=== PATIENT | male | born 1945 | race Caucasian/White ===

== ENCOUNTER 2019-02-03 23:12 | Emergency (ER) | payer MEDICARE, OTHER ==
[2019-02-04 01:50] LABS: ABSOLUTE LYMPHOCYTES (AUTO) 0.8 10^3/uL (0.5-4.7); ABSOLUTE MONOCYTES (AUTO) 0.3 10^3/uL (0.1-1.4); ABSOLUTE NEUT (AUTO) 9.7 10^3/uL (1.7-8.2); BASOPHILS % (AUTO) 0.4 % (0-2); EOSINOPHILS % (AUTO) 0.2 % (0-6); HEMATOCRIT 41.3 % (37.9-51.0); HEMOGLOBIN 14.5 g/dL (13.5-17.0); MEAN CORPUSCULAR HEMOGLOBIN 30.8 pg (27.0-33.4); MEAN CORPUSCULAR VOLUME 88 fl (80-97); MONOCYTES % (AUTO) 2.9 % (3-13); PLATELET COUNT 199 10^3/uL (150-450); RED BLOOD COUNT 4.69 10^6/uL (4.35-5.55); RED CELL DISTRIBUTION WIDTH 13.2 % (11.5-14.0); SEGMENTED NEUTROPHILS % (AUTO) 89.5 % (42-78); TOTAL CELLS COUNTED % (AUTO) 100 %; WHITE BLOOD COUNT 10.8 10^3/uL (4.0-10.5)
[2019-02-04 01:51] LABS: APPEARANCE,URINE CLEAR; BILIRUBIN,URINE NEGATIVE (NEGATIVE); COLOR,URINE YELLOW; GLUCOSE, URINE NEGATIVE (NEGATIVE); KETONES,URINE NEGATIVE (NEGATIVE); LEUKOCYTE ESTERASE,URINE NEGATIVE (NEGATIVE); NITRITE,URINE NEGATIVE (NEGATIVE); PROTEIN,URINE NEGATIVE (NEGATIVE); URINE SPECIFIC GRAVITY 1.016; UROBILINOGEN,URINE NEGATIVE mg/dL (<2.0)
[2019-02-04 02:16] LABS: ALANINE AMINOTRANSFERASE 21 U/L (21-72); ALBUMIN 4.5 g/dL (3.5-5.0); ALKALINE PHOSPHATASE 72 U/L (38-126); ANION GAP 10 (5-19); ASPARTATE AMINO TRANSFERASE 20 U/L (17-59); BILIRUBIN,DIRECT 0.1 mg/dL (0.0-0.4); BILIRUBIN,TOTAL 0.5 mg/dL (0.2-1.3); BLOOD UREA NITROGEN 21 mg/dL (7-20); CARBON DIOXIDE 28 mmol/L (22-30); CHLORIDE 105 mmol/L (98-107); GLUCOSE 153 mg/dL (75-110); LIPASE 52.3 U/L (23-300); POTASSIUM 3.9 mmol/L (3.6-5.0); SODIUM 142.8 mmol/L (137-145); TOTAL PROTEIN 7.3 g/dL (6.3-8.2)
--- NOTE | 2019-02-04 03:28 | RADIOLOGY REPORT (SQ) ---
EXAM DESCRIPTION: CT ABDOMEN PELVIS WITH IV CONTRAST COMPLETED DATE/TME: 02/04/2019 02:20 CLINICAL HISTORY: 73 years, Male, RLQ [pain COMPARISON: None. TECHNIQUE: 391 Images stored on PACS. All CT scanners at this facility use dose modulation, iterative reconstruction, and/or weight based dosing when appropriate to reduce radiation dose to as low as reasonably achievable (ALARA). [facility]: Dose Right [facility]: CareDose [facility]: Dose Right [facility]: Teradose 4D [facility]: LightSquared LIMITATIONS: None. FINDINGS: Limited evaluation of the lung bases is unremarkable. Osseous structures are grossly intact. The liver, spleen, adrenal glands are unremarkable. Fatty atrophy of the pancreas. 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 Gallbladder is present. Simple appearing left renal cyst. Punctate nonobstructing 1 to 2 mm renal calculi bilaterally. Kidneys are otherwise unremarkable. No evidence for bowel obstruction. Normal appendix. Large amount of stool in the colon. Descending and sigmoid colon diverticulosis. No CT evidence for acute diverticulitis. The prostate is enlarged. IMPRESSION: Descending/sigmoid colon diverticulosis without CT evidence for diverticulitis. Punctate nonobstructing renal calculi bilaterally. Partially thrombosed splenic artery aneurysm. Enlargement of the prostate. Correlate with PSA levels. TECHNICAL DOCUMENTATION: Quality ID # [id number]: Final reports with documentation of one or more dose reduction techniques (e.g., Automated exposure control, adjustment of the mA and/or kV according to patient size, use of iterative reconstruction technique) copyright 2011 [employer]- All Rights Reserved
[2019-02-04] MEDS ORDERED: KETOROLAC TROMETHAMINE INJ/PF 30 MG/1 ML SDV IV ONE (03:52)
--- NOTE | 2019-02-04 04:04 | ER Document Report ---
ED General - General Chief Complaint: Flank Pain Stated Complaint: FLANK PAIN Time Seen by Provider: 02/04/19 02:19 Primary Care Provider: CARLITO LEON MD [Primary Care Provider] - Follow up as needed Notes: Patient is a 73-year-old male presents to the emergency department for generalized right lower abdominal pain started around 1900 hrs. this evening. Patient is denying any nausea, vomiting, diarrhea, fever, dysuria. She states his last bowel movement was prior to arrival to the emergency room. Patient states pain is a constant cramping. Patient states intermittently the pain does go to his right flank region. Past medical history: Hypertension, hyperlipidemia, GERD Medications: Amlodipine, atorvastatin, omeprazole, aspirin Allergies: None TRAVEL OUTSIDE OF THE [place] IN LAST 30 DAYS: No - Related Data Allergies/Adverse Reactions: No Known Allergies Allergy (Unverified 02/03/19 23:19) Past Medical History - General Information source: Patient - Social History Smoking Status: Never Smoker Family History: Reviewed & Not Pertinent Patient has suicidal ideation: No Patient has homicidal ideation: No - Past Medical History Cardiac Medical History: Reports: Hx Hypercholesterolemia, Hx Hypertension Renal/ Medical History: Denies: Hx Peritoneal Dialysis Review of Systems - Review of Systems Constitutional: No symptoms reported EENT: No symptoms reported Cardiovascular: No symptoms reported Respiratory: No symptoms reported Gastrointestinal: See HPI Genitourinary: See HPI Male Genitourinary: No symptoms reported Musculoskeletal: See HPI Skin: No symptoms reported Hematologic/Lymphatic: No symptoms reported Neurological/Psychological: No symptoms reported Physical Exam - Vital signs Vitals: Temp Pulse Resp BP Pulse Ox 97.4 F 58 L 16 153/77 H 100 02/04/19 01:13 02/04/19 01:13 02/04/19 01:13 02/04/19 01:13 02/04/19 01:13 - Notes Notes: GENERAL: Alert, interacts well. No acute distress. HEAD: Normocephalic, atraumatic. EYES: Pupils equal, round, and reactive to light. Extraocular movements intact. ENT: Oral mucosa moist, tongue midline. NECK: Full range of motion. Supple. Trachea midline. LUNGS: Clear to auscultation bilaterally, no wheezes, rales, or rhonchi. No respiratory distress. HEART: Regular rate and rhythm. No murmur ABDOMEN: Soft, Non-distended. Bowel sounds present in all 4 quadrants. Generalized right lower abdominal pain, no Roberson sign noted. EXTREMITIES: Moves all 4 extremities spontaneously. No edema, normal radial and dorsalis pedis pulses bilaterally. No cyanosis. BACK: no cervical, thoracic, lumbar midline tenderness. No saddle anesthesia, normal distal neurovascular exam. No CVA tenderness noted bilaterally NEUROLOGICAL: Alert and oriented x3. Normal speech. cranial nerves II through XII grossly intact PSYCH: Normal affect, normal mood. SKIN: Warm, dry, normal turgor. No rashes or lesions noted. Course - Re-evaluation Re-evalutation: 02/04/19 04:[address] does show a partially thrombosed splenic artery, discussed this with surgeon Dr. Starks who states this is something that can be followed up in the office. Patient CT also revealed signs of constipation, no appendicitis, no SBO.. Discussed diagnosis of constipation with patient at bedside. Discussed close follow-up with primary care provider and return precautions. Patient voices understanding is stable for discharge. 02/04/19 04:02 - Vital Signs Vital signs: Temp Pulse Resp BP Pulse Ox 97.4 F 58 L 16 153/77 H 100 02/04/19 01:13 02/04/19 01:13 02/04/19 01:13 02/04/19 01:13 02/04/19 01:13 - Laboratory Result Diagrams: 02/04/19 01:34 02/04/19 01:34 Laboratory results interpreted by me: 02/04/19 02/04/19 02/04/19 01:34 01:34 01:34 WBC 10.8 H Seg Neutrophils % 89.5 H Lymphocytes % 7.0 L Monocytes % 2.9 L Absolute Neutrophils 9.7 H BUN 21 H Glucose 153 H Urine Ascorbic Acid 40 H Discharge - Discharge Clinical Impression: Constipation Qualifiers: Constipation type: unspecified constipation type Qualified Code(s): K59.00 - Constipation, unspecified Abdominal pain Qualifiers: Abdominal location: right lower quadrant Qualified Code(s): R10.31 - Right lower quadrant pain Condition: Stable Disposition: HOME, SELF-CARE Instructions: Toradol Injection ([facility]), Bulk Laxatives, Constipation ([facility]) Additional Instructions: As we discussed you have been seen and treated in the department for your right lower abdominal pain. There are no signs of appendicitis or small bowel obstruction. There is signs that he may be constipated. Please make sure you are taking MiraLAX as prescribed and follow-up with your primary care provider in the next 24-48 hours. Should your pain increase or return he should come back to the emergency department for reevaluation. Please also return to the emergency room for any other concerning symptoms. Prescriptions: Polyethylene Glycol 3350 [Miralax] 1 cap PO DAILY #527 powder Referrals: CARLITO LEON MD [Primary Care Provider] - Follow up as needed
[2019-02-04 04:12] VITALS: BP 157/81
== END 2019-02-04 04:17 | disposition home or self-care (01) ==
LOC: ER 23:12
DX: K59.00 Constipation, unspecified (principal); R10.31 Right lower quadrant pain; I10 Essential (primary) hypertension; E78.5 Hyperlipidemia, unspecified; K21.9 Gastro-esophageal reflux disease without esophagitis; Z88.6 Allergy status to analgesic agent
CPT/HCPCS: 99284; 96374; 36415; 83690; 85025; 80053; 81001; 74177; J1885